=== PATIENT | female | born 1955 | race Caucasian/White ===

== ENCOUNTER 2018-11-07 15:55 | Inpatient (IN) | payer OTHER ==
[~2018-11-07] VITALS: Ht 162.6 cm; Wt 76.4 kg
[~2018-11-07 15:55] MED LIST: HYDROcodone/APAP 7.5/325 MG 1 TAB PO SCH
--- NOTE | 2018-11-07 15:55 | NUR ---
Patient BIBA BLS, transferred to bed 5. RN evaluating patient at bedside.
[2018-11-07 16:00] VITALS: BP 195/71
--- NOTE | 2018-11-07 16:16 | NUR ---
Patient transferred to bed 7 for further care. RN re-evaluating patient at bedside.
[2018-11-07] MEDS ORDERED: hydrALAZINE 20 MG/ML VIAL IVP ONE (16:20)
--- NOTE | 2018-11-07 16:27 | NUR ---
Dr. Baker evaluating patient at bedside.
--- NOTE | 2018-11-07 16:30 | NUR ---
RLQ ABD PAIN SINCE THIS MORNING 0700, PT WENT TO DIALYSIS , ABOUT 30 MINUTES AWAY TO FINISH DIALYSIS. ABD PAIN GETTING WORSE. DIALYSIS CENTER STAFF CALLED 911. DENIES N/V/D; PT DENIES ANY FEVER, CP, SOB, OR COUGH AT THIS TIME; PATIENT STATES PAIN OF 0/10 AT THIS TIME; VSS; PATIENT POSITIONED FOR COMFORT; HOB ELEVATED; BEDRAILS UP X1; BED DOWN. ER MD MADE AWARE OF PT STATUS.
--- NOTE | 2018-11-07 16:35 | NUR ---
Patient taken to CT scan via gurney by [employer].
[2018-11-07 16:54] LABS: BASOPHILS % (AUTO) 0.8 % (0.0-2.0); EOSINOPHILS # (AUTO) 0.2 K/uL (0-0.4); EOSINOPHILS % (AUTO) 3.2 % (0.0-4.0); HEMATOCRIT 31.2 % (36-48); HEMOGLOBIN 10.2 g/dL (12.0-16.0); LYMPHOCYTES # (AUTO) 0.9 K/uL (2.5-16.5); LYMPHOCYTES % (AUTO) 17.9 % (20.5-51.1); MEAN CORPUSCULAR HEMOGLOBIN 31 pg (27-31); MEAN CORPUSCULAR HGB CONC 33 g/dL (33-37); MEAN CORPUSCULAR VOLUME 96.1 fL (80-94); MONOCYTES # (AUTO) 0.3 K/uL (0.8-1.0); MONOCYTES % (AUTO) 5.5 % (1.7-9.3); NEUTROPHILS # (AUTO) 3.5 K/uL (1.8-7.7); NEUTROPHILS % (AUTO) 72.6 % (42.2-75.2); PLATELET COUNT (AUTO) 188 K/uL (140-450); RED BLOOD CELL COUNT(AUTO) 3.24 MIL/uL (4.20-5.40); WHITE BLOOD COUNT (AUTO) 4.9 K/uL (4.8-10.8)
--- NOTE | 2018-11-07 17:02 | NUR ---
EKG PERFORMED AT BEDSIDE
[2018-11-07 17:16] LABS: ANION GAP 11.6 (8-16); POTASSIUM 3.6 mmol/L (3.5-5.1)
[2018-11-07 17:20] LABS: ALBUMIN 3.7 g/dL (3.4-5.0); TOTAL BILIRUBIN 0.8 mg/dL (0.0-1.0)
[2018-11-07 17:21] LABS: CREATININE 4.4 mg/dL (0.6-1.3)
[2018-11-07 17:23] LABS: PROTHROMBIN TIME 10.6 secs (10.8-13.4)
[2018-11-07] MEDS ORDERED: NACL 0.9% 1,000 ML IV SCH (17:50)
[2018-11-07] MEDS ORDERED: MORPHINE SULFATE 2 MG/ML SYR IVP ONE (18:25)
--- NOTE | 2018-11-07 18:51 | NUR ---
Pt transferred to [id number] via BED WITH HANY ROSAS.
--- NOTE | 2018-11-07 19:00 | NUR ---
Patient will be admitted to care of [facility]. Admited to TELEMETRY. Will go to room 117. Belongings list completed. Report to HANY FANG.
--- NOTE | 2018-11-07 19:05 | NUR ---
RECEIVED REPORT FROM EMERGENCY ROOM NURSE FOR CONTINUITY OF CARE. PT IN STABLE CONDITION. RESPIRATIONS EVEN AND UNLABORED. IV INTACT AND PATENT. SAFETY MEASURES IN PLACE. BED IN LOW POSITION. BED ALARM ON. CALL LIGHT AT BEDSIDE. WILL CONTINUE TO MONITOR.
[2018-11-07 19:12] LABS: CHOL/HDL RATIO 2.6 (1-4.5); MAGNESIUM 2.2 mg/dL (1.8-2.4); PHOSPHORUS 3.6 mg/dL (2.5-4.9); THYROID STIMULATING HORMONE 1.62 uIU/mL (0.34-3.74)
[2018-11-07 19:15] VITALS: BP 159/75
--- NOTE | 2018-11-07 19:15 | NUR ---
GAVE REPORT TO INTERVENTION MANAGER NURSE TIGRE FOR CONTINUITY OF CARE. PT IN STABLE CONDITION.
--- NOTE | 2018-11-07 19:15 | NUR ---
RECIEVED PT AAOX4 ,NID , IV SITE INTACT AND PATENT , WITV FISTULA ON LEFT UPPER ARM , WITH BEARABLE PAIN AT THIS TIME , RESIDENT ON BEDSIDE , PLAN OF CARE DISCUSSED AND VERBALIZE UNDERSTANDING , BED IN LOW POSITION ,SIDERAILS UP ,CALL LIGHT WITHIN REACH , WILL CONT. TO MONITOR.
[2018-11-07] MEDS ORDERED: MELATONIN 3 MG TAB PO PRN (19:45)
[2018-11-07] MEDS ORDERED: MEDICATION REC. PHARMACY CONS. 1 EA MISC MC PRN (19:45)
[2018-11-07] MEDS ORDERED: TRA200 PO (20:04)
[2018-11-07] MEDS ORDERED: SEVE0.8P PO (20:04)
[2018-11-07] MEDS ORDERED: LISI-420 PO (20:04)
[2018-11-07] MEDS ORDERED: METO10TA10 PO (20:04)
[2018-11-07] MEDS ORDERED: VITA1TAB44 PO (20:04)
[2018-11-07] MEDS ORDERED: ISOS30TE68 PO (20:04)
[2018-11-07] MEDS ORDERED: ATOR40TA PO (20:04)
[2018-11-07] MEDS ORDERED: SEVELAMER CARBONATE 800 MG TAB PO SCH (20:05)
[2018-11-07] MEDS ORDERED: METOCLOPRAMIDE 10 MG/2 ML INJ VIAL IVP PRN (20:05)
[2018-11-07] MEDS ORDERED: LIDOCAINE VISCOUS 2% 20 ML UDC PO ONE (20:20)
[2018-11-07] MEDS ORDERED: DICYCLOMINE HCL LIQUID 10 MG/5 ML UDC PO ONE (20:20)
[2018-11-07] MEDS ORDERED: ALUMINUM HYD/MAG/SIMETHICONE 30 ML UDC PO ONE (20:20)
[2018-11-07] MEDS ORDERED: SODIUM PHOSPHATE 118 ML ENEM RC PRN (20:30)
[2018-11-07] MEDS ORDERED: DICYCLOMINE HCL LIQUID 10 MG/5 ML UDC PO PRN (20:30)
--- NOTE | 2018-11-07 22:00 | NUR ---
BEDSIDE TELEPHONE NOT WORKING - INFROM FAIR[facility] ABOUT THIS - FIXED
[2018-11-07] MEDS ORDERED: HYDROmorphone 1 MG/ML AMP IVP PRN (22:45)
[2018-11-07] MEDS ORDERED: HYDROcodone/APAP 7.5/325 MG 1 TAB ONE (23:08)
--- NOTE | 2018-11-07 23:10 | NUR ---
NARCO TAB FOR PAIN GIVEN NO ENTRY TO EMAR BECAUSE THE EMAR NOT YET UPLOADED / UPDATED BY PHARMACY - CHARGE NURSE OK AWARE SHE IS THE ONE OVERRIDED THE NARCO
--- NOTE | 2018-11-07 23:30 | NUR ---
NA PHOSPHATE FLEET ENEMA GIVEN / RECTUM ORDERED.
[2018-11-08] VITALS: BP_SYST 148; BP_SYST 152; BP_DIAS 72; BP_DIAS 85
--- NOTE | 2018-11-08 | NUR ---
MADE ROUNDS , RESP. EVEN AND UNLABORED , NO COMPLAIN MADE AT THIS TIME , CALL LIGHT WITHIN REACH.
--- NOTE | 2018-11-08 | NUR ---
MADE ROUNDS ,RESP.EVEN AND UNLABORED , NO COMPLAIN MADE AT THIS TIME , CALL LIGHT WITHIN REACH , WILL CONT. TO MONITOR.
[2018-11-08] MEDS: ISOSORBIDE MONONITRATE 30 MG TABER PO SCH ×2 (00:33→09:06)
[2018-11-08] MEDS: LABETALOL 200 MG TAB PO SCH ×3 (00:34→21:47)
[2018-11-08] MEDS ORDERED: HYDROcodone/APAP 7.5/325 MG 1 TAB PO PRN (01:15)
[2018-11-08] MEDS ORDERED: ALUMINUM HYD/MAG/SIMETHICONE 30 ML UDC ONE (01:18)
[2018-11-08] MEDS ORDERED: LIDOCAINE VISCOUS 2% 20 ML UDC ONE (01:18)
[2018-11-08] MEDS: DEXT 5% / NACL 0.9% 500 ML IV SCH ×2 (01:30→03:42)
[2018-11-08] MEDS ORDERED: GLUCAGON 1 MG VIAL IVP PRN (01:35)
[2018-11-08] MEDS ORDERED: DEXTROSE 50% 50 ML SYR IVP PRN (01:35)
[2018-11-08] MEDS ORDERED: INSULIN LISPRO SLIDING SCALE 100 UNITS/ML VIAL SUBQ PRN (01:35)
--- NOTE | 2018-11-08 02:00 | NUR ---
PT SLEEPING , CALL LIGHT WITHIN REACH
[2018-11-08 04:00] VITALS: BP 142/75
--- NOTE | 2018-11-08 04:00 | NUR ---
MADE ROUNDS RESP. EVEN AND UNLABORED , NO COMPLAIN MADE AT THIS TIME , CALL LIGHT WITHIN REACH
[2018-11-08] MEDS: BLOOD GLUCOSE MONITORING 1 DEV DEV FS SCH ×4 (06:09→21:00)
--- NOTE | 2018-11-08 07:23 | NUR ---
ENDORSED TO AM SHIFT TO CONT. OF CARE , LATEST BP 142/72
--- NOTE | 2018-11-08 07:26 | NUR ---
RECEIVED REPORT FROM MACHINIST/MACHINE BUILDER NURSE FOR CONTINUITY OF CARE. PT IN STABLE CONDITION. RESPIRATIONS EVEN AND UNLABORED. IV INTACT AND PATENT. SKIN INTACT. NPO EXCEPT MEDS. SAFETY MEASURES IN PLACE. BED IN LOW POSITION. BED ALARM ON. CALL LIGHT AT BEDSIDE. WILL ROUND FREQUENTLY ON PT.
[2018-11-08] MEDS ORDERED: SUCRALFATE 1 GM TAB PO SCH (08:00)
--- NOTE | 2018-11-08 08:08 | NUR ---
PATIENT HAS BEEN SCREENED AND CATEGORIZED MODERATE NUTRITION RISK. PATIENT WILL BE SEEN WITHIN 3-5 DAYS OF ADMISSION. 11/10/18[address]
[2018-11-08 08:20] VITALS: BP 140/52
[2018-11-08 08:32] LABS: EOSINOPHILS # (AUTO) 0.2 K/uL (0-0.4); EOSINOPHILS % (AUTO) 4.6 % (0.0-4.0); HEMATOCRIT 29.5 % (36-48); HEMOGLOBIN 9.6 g/dL (12.0-16.0); LYMPHOCYTES # (AUTO) 1.3 K/uL (2.5-16.5); LYMPHOCYTES % (AUTO) 28.6 % (20.5-51.1); MEAN CORPUSCULAR HEMOGLOBIN 31 pg (27-31); MEAN CORPUSCULAR HGB CONC 33 g/dL (33-37); MONOCYTES # (AUTO) 0.4 K/uL (0.8-1.0); NEUTROPHILS # (AUTO) 2.7 K/uL (1.8-7.7); NEUTROPHILS % (AUTO) 57.8 % (42.2-75.2); PLATELET COUNT (AUTO) 184 K/uL (140-450); RED BLOOD CELL COUNT(AUTO) 3.07 MIL/uL (4.20-5.40); RED CELL DISTRIBUTION WIDTH 16.2 % (11.6-13.7); WHITE BLOOD COUNT (AUTO) 4.6 K/uL (4.8-10.8)
[2018-11-08 08:38] LABS: ANION GAP 12.4 (8-16); CARBON DIOXIDE 31.8 mmol/L (21-32); POTASSIUM 4.2 mmol/L (3.5-5.1)
[2018-11-08 08:41] LABS: MAGNESIUM 2.2 mg/dL (1.8-2.4); PHOSPHORUS 5.9 mg/dL (2.5-4.9)
--- NOTE | 2018-11-08 08:49 | NUR ---
ADMINISTERED MORNING MEDS TO PT. PT TOLERATED THEM WELL. WILL CONTINUE TO ROUND FREQUENTLY ON PT.
[2018-11-08] MEDS: SEVELAMER CARBONATE 800 MG TAB PO SCH (09:07)
[2018-11-08] MEDS: GABAPENTIN 300 MG CAP PO SCH ×2 (09:08→21:47)
[2018-11-08] MEDS: VIT-B COMP/VIT-C/FOLIC ACID 1 TAB PO SCH (09:08)
--- NOTE | 2018-11-08 12:24 | NUR ---
PT REFUSING INSULIN COVERAGE DUE TO BEING NPO. WILL RECHECK PT GLUCOSE LEVEL AT 1630.
--- NOTE | 2018-11-08 13:18 | NUR ---
RECORDING ENGINEER note [id number]. Bedside swallow evaluation completed, please see report for details. RECORDING ENGINEER provided pt with education regarding purpose of RECORDING ENGINEER's visit and rationale for recommendations. Pt verbalized agreement and understanding at this time. No family present at this time. Recommend: 1) mechanical soft textures (per pt's preference) 2) thin liquids 3) pills to be crushed, if possible (per pt's preference) 4) general aspiration precautions (including pt to be fully upright/awake/alert for any PO intakes, alternate small/slow bites and sips) 5) no further RECORDING ENGINEER intervention indicated at this time. Physician may reorder if further concerns arise, as appropriate. G-codes: [id number] [id number] [facility] NOMS level 5.
--- NOTE | 2018-11-08 13:39 | NUR ---
PT RESTING IN BED. NO COMPLAINTS OF PAIN AT THIS TIME. WILL CONTINUE TO ROUND FREQUENTLY ON PT.
[2018-11-08] MEDS ORDERED: BOWEL EVACUANT DRINK 4,000 ML PDS PO SCH (15:00)
--- NOTE | 2018-11-08 15:38 | NUR ---
PT RESTING IN BED. NO COMPLAINTS OF PAIN AT THIS TIME. WILL CONTINUE TO ROUND FREQUENTLY ON PT.
[2018-11-08 16:00] VITALS: BP 150/54
[2018-11-08] MEDS: LACTULOSE 20 GM/30 ML UDC PO SCH ×2 (17:45→21:47)
[2018-11-08] MEDS: SENNA 8.6 MG TAB PO SCH (17:46)
--- NOTE | 2018-11-08 19:37 | NUR ---
RECIEVED PT AAOX4 , NID , IV SITE INTACT AND PATENT , PLAN OF CARE DISCUSSED AND VERBALIZE UNDERSTANDING , NO COMPLAIN MADE AT THIS TIME . BED IN LOW POSITION , CALL LIGHT WITHIN REACH , SIDERAILS UPX2 , WILL CONTINUE TO MONITOR . FOR COLONOSCOPY K[place]. ON NPO POST [place] RE INSTRUCTED.
--- NOTE | 2018-11-08 19:37 | NUR ---
ENDORSED PT TO MANAGER MERCHANDISING FOR CONTINUITY OF CARE. PT IN STABLE CONDITION AT THIS TIME.
[2018-11-08 20:00] VITALS: BP 154/64
--- NOTE | 2018-11-08 22:00 | NUR ---
MADE ROUNDS - PT. SLEEPING. CALL LIGHT WITHIN REACH.
--- NOTE | 2018-11-09 | NUR ---
MADE ROUNDS , V/S WNL , NO COMPLAIN MADE AT THIS TIME , WILL CONT. TO MONITOR ,CALL LIGHT WITHIN REACH.
--- NOTE | 2018-11-09 02:00 | NUR ---
MADE ROUNDS , PT. SLEEPING , WILL CONT. TO MONITOR;
[2018-11-09 04:00] VITALS: BP 120/80
--- NOTE | 2018-11-09 04:00 | NUR ---
MADE ROUNDS , RESP EVEN AND UNLABORED , NO COMPLAIN MADE AT THIS TIME , CALL LIGHT WITHIN REACH.
--- NOTE | 2018-11-09 06:00 | NUR ---
MADE ROUNDS , NO COMPLAIN MADE AT THIS TIME. CALL LIGHT WITHIN REACH.
--- NOTE | 2018-11-09 07:22 | NUR ---
ENDORSED TO AM SHIFT FOR CONTINUITY OF CARE ,WITH STABLE CONDITION. CALL LIGHT WITHIN REACH.
--- NOTE | 2018-11-09 07:29 | NUR ---
RECEIVED REPORT FROM DISTRICT FIRE CHIEF FOR CONTINUITY OF CARE FROM YESTERDAY. PT IS ALERT AND ORIENTED. WILL ROUND FREQUENTLY ON PT.
[2018-11-09] MEDS: BLOOD GLUCOSE MONITORING 1 DEV DEV FS SCH ×4 (07:59→21:00)
[2018-11-09 08:30] VITALS: BP 184/68
[2018-11-09 08:33] LABS: BASOPHILS % (AUTO) 0.7 % (0.0-2.0); EOSINOPHILS # (AUTO) 0.3 K/uL (0-0.4); EOSINOPHILS % (AUTO) 5.5 % (0.0-4.0); HEMATOCRIT 29.9 % (36-48); HEMOGLOBIN 9.8 g/dL (12.0-16.0); LYMPHOCYTES # (AUTO) 1.4 K/uL (2.5-16.5); LYMPHOCYTES % (AUTO) 28.5 % (20.5-51.1); MEAN CORPUSCULAR HEMOGLOBIN 31 pg (27-31); MEAN CORPUSCULAR HGB CONC 33 g/dL (33-37); MEAN CORPUSCULAR VOLUME 96.4 fL (80-94); MONOCYTES # (AUTO) 0.4 K/uL (0.8-1.0); MONOCYTES % (AUTO) 8.3 % (1.7-9.3); NEUTROPHILS # (AUTO) 2.8 K/uL (1.8-7.7); PLATELET COUNT (AUTO) 181 K/uL (140-450); WHITE BLOOD COUNT (AUTO) 4.9 K/uL (4.8-10.8)
[2018-11-09] MEDS ORDERED: fentaNYL 0.05 MG/ML VIAL ONE (08:33)
[2018-11-09] MEDS ORDERED: diphenhydrAMINE 50 MG/ML VIAL ONE (08:33)
[2018-11-09] MEDS ORDERED: MIDAZOLAM 2 MG/2 ML VIAL ONE (08:33)
[2018-11-09] MEDS ORDERED: fentaNYL 0.05 MG/ML VIAL IVP ONE (09:05)
[2018-11-09] MEDS ORDERED: MIDAZOLAM 2 MG/2 ML VIAL IVP ONE (09:05)
--- NOTE | 2018-11-09 09:12 | NUR ---
ADMINISTERED MORNING MEDS TO PT. PT TOLERATED THEM WELL. WILL CONTINUE TO ROUND FREQUENTLY ON PT.
[2018-11-09 09:40] LABS: ANION GAP 14.3 (8-16); CARBON DIOXIDE 30.3 mmol/L (21-32); POTASSIUM 4.6 mmol/L (3.5-5.1)
[2018-11-09 09:45] LABS: MAGNESIUM 2.7 mg/dL (1.8-2.4)
[2018-11-09 09:48] LABS: CREATININE 7.8 mg/dL (0.6-1.3)
[2018-11-09] MEDS ORDERED: ACETAMINOPHEN 325 MG TAB ONE (10:49)
[2018-11-09] MEDS: VIT-B COMP/VIT-C/FOLIC ACID 1 TAB PO SCH (10:57)
[2018-11-09] MEDS: ECOTRIN 81 MG TABEC PO SCH (10:58)
[2018-11-09] MEDS: ISOSORBIDE MONONITRATE 30 MG TABER PO SCH (10:58)
[2018-11-09] MEDS: SENNA 8.6 MG TAB PO SCH ×3 (10:58→17:00)
[2018-11-09] MEDS: LABETALOL 200 MG TAB PO SCH ×2 (10:59→20:57)
[2018-11-09] MEDS: LACTULOSE 20 GM/30 ML UDC PO SCH ×4 (11:00→21:00)
--- NOTE | 2018-11-09 11:47 | NUR ---
PT RESTING IN BED. NO COMPLAINTS OF PAIN AT THIS TIME. WILL CONTINUE TO ROUND FREQUENTLY ON PT.
--- NOTE | 2018-11-09 13:29 | NUR ---
PT RESTING IN BED. NO COMPLAINTS OF PAIN AT THIS TIME. WILL CONTINUE TO ROUND FREQUENTLY ON PT.
[2018-11-09 15:10] LABS: FOLIC ACID > 20.00 ng/mL (>3.0)
[2018-11-09 16:00] VITALS: BP 150/54
[2018-11-09] MEDS ORDERED: EPOETIN ALFA 10,000 UNITS/ML VIAL IV SCH (17:00)
--- NOTE | 2018-11-09 17:55 | NUR ---
PT RESTING IN BED. NO COMPLAINTS OF PAIN AT THIS TIME. WILL CONTINUE TO ROUND FREQUENTLY ON PT.
[2018-11-09] MEDS: ACETAMINOPHEN 325 MG TAB PO PRN (18:35)
[2018-11-09] MEDS: LANSOPRAZOLE 30 MG CAPDR PO SCH (18:35)
[2018-11-09] MEDS ORDERED: MAGNESIUM CITRATE 300 ML BTL PO SCH (19:00)
--- NOTE | 2018-11-09 19:30 | NUR ---
RECEIVED REPORT FORM DAY SHIFT NURSE. AAOX4. MIRIAN PAIN AT THIS TIME. NO SOB NOTED. ON ROOM AIR. IV TO RIGHT FA #20G AND RIGHT HAND #20G, PATENT AND INTACT. PT HAS LEFT AV SHUNT WITH DRESSING, CLEAN, DRY AND INTACT. PT'S DAUGHTER AT BEDSIDE. SAFETY PRECAUTION IN PLACE. CALL LIGHT WITHIN REACH.
--- NOTE | 2018-11-09 19:56 | NUR ---
ENDORSED PT TO PHARMACIST IN CHARGE OWNER FOR CONTINUITY OF CARE. PT IN STABLE CONDITION AT THIS TIME.
[2018-11-09 20:00] VITALS: BP 148/57
[2018-11-09] MEDS: CLARITHROMYCIN 500 MG TAB PO SCH (20:57)
[2018-11-09] MEDS: AMOXICILLIN 500 MG CAP PO SCH (20:57)
[2018-11-09] MEDS: POLYETHYLENE GLYCOL 17 GM/PKT PO SCH (21:00)
--- NOTE | 2018-11-09 21:12 | NUR ---
PT REFUSED LACTULOSE, MIRALAX AND HEPARIN 5000 UNITS SUBQ. EXPLAINED TO PT THE RISK AND BENEFITS. PT VERBALIZED UNDERSTANDING BUT STILL REFUSED. DR. ALBARADO MADE AWARE.
--- NOTE | 2018-11-09 21:30 | NUR ---
ASSISTED PT TO BEDSIDE COMMODE AND BACK TO BED. PT HAD MEDIUM SIZE FORMED BM. NO C/O PAIN AT THIS TIME.
[2018-11-09] MEDS ORDERED: MORPHINE SULFATE 2 MG/ML SYR IVP SCH (22:15)
--- NOTE | 2018-11-09 22:30 | NUR ---
MORPHINE HELD AT THIS TIME. DR. ALBARADO MADE AWARE THAT PT SLEEPING. NO S/S OF PAIN. PER MD, JUST GIVE THE MORPHINE WHEN PT ASKED FOR PAIN MEDS.
[2018-11-10 00:30] VITALS: BP 200/68
[2018-11-10] MEDS: hydrALAZINE 20 MG/ML VIAL IVP PRN ×2 (01:01→16:18)
--- NOTE | 2018-11-10 01:05 | NUR ---
PT'S BP 200/68, HR 79. HYDRALAZINE 10 MG IVP GIVEN. PT C/O ABD. PAIN. MORPHINE [address] ALBARADO MADE AWARE. PT REFUSED TO TAKE THE BOWEL PREP FOR COLONOSCOPY. DR. ALBARADO MADE AWARE BUT ORDERED TO KEEP THE PT NPO AFTER MIDNIGHT.
[2018-11-10 02:01] VITALS: BP 146/61
--- NOTE | 2018-11-10 02:05 | NUR ---
RECHECKED V/S BP 146/61, HR 89. DENIES PAIN AT THIS TIME. PT KEPT COMFORTABLE. CALL LIGHT WITHIN REACH.
[2018-11-10 04:00] VITALS: BP 133/56
--- NOTE | 2018-11-10 04:50 | NUR ---
PT SLEEPING. NO S/S OF RESP DISTRESS. NO S/S OF PAIN. SAFETY PRECAUTION IN PLACE. CALL LIGHT WITHIN REACH.
--- NOTE | 2018-11-10 06:00 | NUR ---
BLOOD SUGAR CHECKED 87. PT LYING IN BED. AWAKE. NO C/O PAIN OR SOB. ALL NEEDS ATTENDED AT THIS TIME.
[2018-11-10] MEDS: BLOOD GLUCOSE MONITORING 1 DEV DEV FS SCH ×4 (06:17→21:32)
[2018-11-10] MEDS: LANSOPRAZOLE 30 MG CAPDR PO SCH ×2 (06:39→16:16)
--- NOTE | 2018-11-10 07:05 | NUR ---
ENDORSED PT TO DAY SHIFT NURSE. PT IN STABLE CONDITION.
--- NOTE | 2018-11-10 07:06 | NUR ---
RECEIVED ENDORSEMENT FROM DOCUMENTATION DESIGNER NURSE. PATIENT IS AAOX4, NORWEGIAN SPEAKING. RESPIRATIONS ARE EVEN AND UNLABORED ON ROOM AIR. PATIENT DENIES ANY PAIN AT THIS TIME. LEFT ARM AV SHUNT NOTED. RIGHT FA 20G IV INTACT AND SL. RIGHT HAND 20IV INTACT AND SL. PLAN OF CARE OF WAS REVIEWED WITH PATIENT, PATIENT VERBALIZED UNDERSTANDING. SAFETY MEASURES IN PLACE, CALL LIGHT WITHIN REACH.
[2018-11-10 08:00] VITALS: BP 184/65
[2018-11-10] MEDS: ACETAMINOPHEN 325 MG TAB PO PRN ×2 (08:47→17:26)
[2018-11-10] MEDS: CLARITHROMYCIN 500 MG TAB PO SCH (08:50)
[2018-11-10] MEDS: VIT-B COMP/VIT-C/FOLIC ACID 1 TAB PO SCH (08:50)
[2018-11-10] MEDS: AMOXICILLIN 500 MG CAP PO SCH (08:50)
[2018-11-10] MEDS: ISOSORBIDE MONONITRATE 30 MG TABER PO SCH (08:51)
[2018-11-10] MEDS: ECOTRIN 81 MG TABEC PO SCH (08:52)
[2018-11-10] MEDS: SENNA 8.6 MG TAB PO SCH ×3 (08:52→17:26)
[2018-11-10] MEDS: LABETALOL 200 MG TAB PO SCH ×2 (08:52→21:34)
[2018-11-10] MEDS: LACTULOSE 20 GM/30 ML UDC PO SCH ×4 (08:54→21:00)
[2018-11-10] MEDS: POLYETHYLENE GLYCOL 17 GM/PKT PO SCH ×2 (08:54→21:00)
--- NOTE | 2018-11-10 08:57 | NUR ---
ADMINISTERED SCHEDULED MEDICATIONS. PATIENT TOLERATED WELL. NO OTHER NEEDS AT THIS TIME, WILL CONTINUE TO MONITOR.
[2018-11-10] MEDS ORDERED: ONDANSETRON 4 MG/2 ML VIAL IVP PRN (09:50)
--- NOTE | 2018-11-10 10:15 | NUR ---
PATIENT SLEEPING. NO OTHER NEEDS AT THIS TIME, WILL CONTINUE TO MONITOR. Addendum: 11/10/18 at 1518 by Jerilyn Garcia RN VISIBLE RISE AND FALL OF CHEST.
[2018-11-10] MEDS: MORPHINE SULFATE 2 MG/ML SYR IVP PRN ×2 (10:52→21:34)
--- NOTE | 2018-11-10 12:15 | NUR ---
PATIENT SLEEPING, EASILY AROUSABLE. NO OTHER NEEDS AT THIS TIME, WILL CONTINUE TO MONITOR.
--- NOTE | 2018-11-10 13:13 | NUR ---
ADMINISTERED SCHEDULED MEDICATIONS. PATIENT TOLERATED WELL. NO OTHER NEEDS AT THIS TIME, WILL CONTINUE TO MONITOR.
[2018-11-10 14:36] LABS: BASOPHILS # (AUTO) 0.1 K/uL (0.00-0.22); EOSINOPHILS # (AUTO) 0.1 K/uL (0-0.4); HEMATOCRIT 32.3 % (36-48); HEMOGLOBIN 10.6 g/dL (12.0-16.0); LYMPHOCYTES # (AUTO) 1.2 K/uL (2.5-16.5); LYMPHOCYTES % (AUTO) 20.6 % (20.5-51.1); MEAN CORPUSCULAR HEMOGLOBIN 32 pg (27-31); MEAN CORPUSCULAR HGB CONC 33 g/dL (33-37); MEAN CORPUSCULAR VOLUME 96.3 fL (80-94); MONOCYTES # (AUTO) 0.3 K/uL (0.8-1.0); NEUTROPHILS % (AUTO) 70.4 % (42.2-75.2); PLATELET COUNT (AUTO) 207 K/uL (140-450); RED BLOOD CELL COUNT(AUTO) 3.35 MIL/uL (4.20-5.40); RED CELL DISTRIBUTION WIDTH 15.9 % (11.6-13.7); WHITE BLOOD COUNT (AUTO) 5.7 K/uL (4.8-10.8)
[2018-11-10 14:53] LABS: ANION GAP 14.7 (8-16); CARBON DIOXIDE 30.2 mmol/L (21-32); POTASSIUM 4.9 mmol/L (3.5-5.1)
[2018-11-10 14:55] LABS: CREATININE 6.5 mg/dL (0.6-1.3)
[2018-11-10 14:57] LABS: MAGNESIUM 2.6 mg/dL (1.8-2.4); PHOSPHORUS 5.4 mg/dL (2.5-4.9)
--- NOTE | 2018-11-10 15:18 | NUR ---
PATIENT SLEEPING. VISIBLE RISE AND FALL OF CHEST. NO OTHER NEEDS AT THIS TIME, WILL CONTINUE TO MONITOR.
[2018-11-10 16:00] VITALS: BP 183/67
[2018-11-10] MEDS: PANTOPRAZOLE 40 MG TABEC PO SCH (16:45)
[2018-11-10] MEDS: TETRACYCLINE 250 MG PO SCH ×2 (16:45→21:00)
[2018-11-10] MEDS: BISMUTH SUBSALICYLATE 15 ML UDBTL PO SCH ×2 (16:45→21:00)
--- NOTE | 2018-11-10 17:10 | NUR ---
SHEELA AT BEDSIDE. WITH PATIENTS PERMISSION, ADDRESSED ALL QUESTIONS AND CONCERNS. NO OTHER NEEDS AT THIS TIME, WILL CONTINUE TO MONITOR.
[2018-11-10] MEDS: metroNIDAZOLE 500 MG TAB PO SCH ×2 (18:00→21:33)
--- NOTE | 2018-11-10 19:27 | NUR ---
ENDORSED TO TAPPER HAND NURSE FOR CONTINUITY OF CARE. PATIENT IS STABLE AT THIS TIME.
--- NOTE | 2018-11-10 21:48 | NUR ---
ADMINISTERED SCHEDULED MEDICATIONS ORDERED. PT TOLERATED WELL. HELD PEPTO BISMOL AND TETRACYCLINE BECAUSE MEDICATIONS ARE NOT AVAILABLE IN [facility] OR [facility] AND [facility] SAID MEDICATIONS WERE NOT AVAILABLE AT THIS TIME. ALSO HELD LACTULOSE AND MIRALAX BECAUSE PT STATES SHE DIDN'T WANT THEM DUE TO HER HAVING DIARRHEA EARLIER IN THE DAY. ADMINISTERED MORPHINE FOR HEADACHE 12/10 AND ZOFRAN FOR NAUSEA WELL. LEFT BED IN LOWEST POSITION WITH BED ALARM ON AND CALL LIGHT WITHIN REACH. WILL CONTINUE TO MONITOR.
--- NOTE | 2018-11-10 23:45 | NUR ---
SPOKE TO PATIENT REGARDING COLONOSCOPY PROCEDURE AND HOW SHE HAD TO HAVE CLEAR STOOL AND THAT WAS WHAT THE MIRALAX AND LACTULOSE WAS FOR, BUT PT KEPT INSISTING THAT DAY SHIFT RN SAID SHE DIDN'T HAVE TO TAKE THEM ANYMORE BECAUSE HER STOOL WAS ALREADY CLEAR.
[2018-11-11] VITALS: BP 141/53
--- NOTE | 2018-11-11 | NUR ---
VITAL SIGNS ARE STABLE. DENIES HAVING PAIN. BED IN LOWEST POSITION, CALL LIGHT WITHIN REACH. WILL CONTINUE TO MONITOR.
[2018-11-11] MEDS: ACETAMINOPHEN 325 MG TAB PO PRN ×2 (01:50→17:18)
--- NOTE | 2018-11-11 01:50 | NUR ---
ADMINISTERED TYLENOL ORDERED FOR HEADACHE. PT TOLERATED WELL. BED IN LOWEST POSITION, CALL LIGHT WITHIN REACH. WILL CONTINUE TO MONITOR.
--- NOTE | 2018-11-11 04:00 | NUR ---
PT RESTING IN BED. DENIES HAVING PAIN. BED IN LOWEST POSITION, CALL LIGHT WITHIN REACH. WILL CONTINUE TO MONITOR.
--- NOTE | 2018-11-11 06:17 | NUR ---
ENDORSED CARE OF PT TO HANY JOSHI AT THIS TIME. PT IN STABLE CONDITION.
[2018-11-11] MEDS: BLOOD GLUCOSE MONITORING 1 DEV DEV FS SCH ×3 (06:20→17:07)
--- NOTE | 2018-11-11 06:20 | NUR ---
RECEIVED ENDORSEMENT OF CARE FORM DAINA RN AT BEDSIDE FOR CONTINUITY OF CARE, PT IN STABLE CONDITION.
[2018-11-11] MEDS: LANSOPRAZOLE 30 MG CAPDR PO SCH (06:26)
--- NOTE | 2018-11-11 06:46 | NUR ---
PT FINGERSTICK IS 82, BLOOD DRAWS AT BEDSIDE. PT ALSO GIVEN ORDERED PREVACID.
--- NOTE | 2018-11-11 06:50 | NUR ---
PLAN OF CARE TO BE ENDORSED AT BEDSIDE FOR CONTINUITY OF CARE, PT IN STABLE CONDITION.
--- NOTE | 2018-11-11 07:10 | NUR ---
RECEIVED PT FROM POWERED BRIDGE SPECIALIST NURSE, PT IS AWAKE AND LYING ON THE BED WITH SIDE RAILS UP AND CALL LIGHT WITHIN REACH, SAFETY AND FALL PRECAUTION ENFORCED, IV LINE ON THE RT FA G. 24 AND RT HAND G. 20 ON SALINE LOCK, PT HAS A LEFT AV SHUNT FOR DIALYSIS ACCESS, PT VERBALIZED A PAIN RATE OF 7/10. WILL MEDICATE AND MONITOR PT.
[2018-11-11 08:00] VITALS: BP 175/68
[2018-11-11] MEDS: POLYETHYLENE GLYCOL 17 GM/PKT PO SCH (08:51)
[2018-11-11] MEDS: SENNA 8.6 MG TAB PO SCH ×3 (08:52→17:00)
[2018-11-11] MEDS: PANTOPRAZOLE 40 MG TABEC PO SCH (08:52)
[2018-11-11] MEDS: ECOTRIN 81 MG TABEC PO SCH (08:52)
[2018-11-11] MEDS: metroNIDAZOLE 500 MG TAB PO SCH (08:52)
[2018-11-11] MEDS: SEVELAMER CARBONATE 800 MG TAB PO SCH (08:53)
[2018-11-11] MEDS: VIT-B COMP/VIT-C/FOLIC ACID 1 TAB PO SCH (08:53)
[2018-11-11] MEDS: BISMUTH SUBSALICYLATE 15 ML UDBTL PO SCH (08:53)
[2018-11-11] MEDS: MORPHINE SULFATE 2 MG/ML SYR IVP PRN (08:54)
[2018-11-11] MEDS: LABETALOL 200 MG TAB PO SCH (08:54)
[2018-11-11] MEDS: ISOSORBIDE MONONITRATE 30 MG TABER PO SCH (08:54)
[2018-11-11] MEDS: LACTULOSE 20 GM/30 ML UDC PO SCH ×3 (08:55→16:58)
--- NOTE | 2018-11-11 08:55 | NUR ---
PT IS AWAKE AND V/S CHECKED, BP IS 175/68, PULSE IS 84, O2 SATURATION IS 96%, RESPIRATION IS 18/MIN, ORAL MEDICATIONS WERE GIVEN AND PT TOLERATED IT, PAIN MEDICATION WAS GIVEN VIA IV PUSH. WILL MONITOR PT.
[2018-11-11] MEDS: hydrALAZINE 20 MG/ML VIAL IVP PRN (10:42)
--- NOTE | 2018-11-11 10:42 | NUR ---
PT WAS GIVEN HYDRALAZINE IV PUSH NOW PER VERBAL ORDER FORM DR. CRAMER, FOR THE BP 184/66, PULSE IS 83, O2 SATURATION IS 94%. WILL RE-ASSESS AND MONITOR PT.
--- NOTE | 2018-11-11 13:54 | NUR ---
PT IS AWAKE AND LYING ON THE BED, ORAL MEDICATIONS WERE GIVEN AND PT TOLERATED IT. WILL MONITOR PT.
[2018-11-11] MEDS ORDERED: CLARITHROMYCIN 500 MG TAB PO SCH ×2 (14:00→18:00)
[2018-11-11] MEDS ORDERED: AMOXICILLIN 500 MG CAP PO SCH (14:00)
[2018-11-11 16:00] VITALS: BP 161/62
[2018-11-11] MEDS ORDERED: LISINOPRIL 20 MG TAB PO SCH (16:20)
[2018-11-11] MEDS ORDERED: ISOSORBIDE MONONITRATE 30 MG TABER PO SCH ×2 (16:20→21:00)
[2018-11-11] MEDS ORDERED: MELA3TAB PO (16:21)
[2018-11-11] MEDS ORDERED: PANT40EC28 PO (16:21)
[2018-11-11] MEDS ORDERED: AMOX500C25 PO (16:21)
[2018-11-11] MEDS ORDERED: ASPI-1173 PO (16:21)
[2018-11-11] MEDS ORDERED: METR250T2 PO (16:21)
[2018-11-11] MEDS ORDERED: CLAR500T PO (16:21)
[2018-11-11] MEDS ORDERED: TRA200 PO (16:21)
[2018-11-11 17:30] VITALS: BP 149/87
--- NOTE | 2018-11-11 17:30 | NUR ---
PT'S VITAL SIGN WAS CHECKED, BP IS 149/87, PULSE IS 89, TEMP IS 98.9, O2 SATURATION IS 96%.
--- NOTE | 2018-11-11 19:25 | NUR ---
ENDORSED PT TO INSIDE SALES REPRESENTATIVE NURSE FOR CONTINUITY OR CARE.
--- NOTE | 2018-11-11 19:26 | NUR ---
RECEIVED PT FROM DAY RN, PT IS AAOX4 AND LYING ON THE BED WITH SIDE RAILS UP AND CALL LIGHT WITHIN REACH, SAFETY AND FALL PRECAUTION ENFORCED, IV LINE ON THE RT FA G. 24 AND RT HAND G. 20 ON SALINE LOCK, PT HAS A LEFT AV SHUNT FOR DIALYSIS ACCESS, PT DENIES PAIN. ORDER PATY DISCHARGE. PAPER STILL TO BE SIGN AND WILL CALL TAXI. PLAN OF CARE DISCUSSED WITH PT. WILL CONTINUE TO ROUND FREQUENTLY.
--- NOTE | 2018-11-11 19:40 | NUR ---
WENT IN WITH DR HUNT TO EXPLAIN TO PATIENT D/C INSTRUCTIONS. PT VERBALIZED UNDERSTANDING AND NO FURTHER QUESTIONS VS ARE WNL ALL NEEDS MET AT THIS TIME. CALLED TAXI WILL BE HERE IN ABOUT 45 MINUTES. WILL CONTINUE TO MONITOR.
[2018-11-11 20:00] VITALS: BP 140/89
--- NOTE | 2018-11-11 20:15 | NUR ---
ALL DISCHARGE PAPERS WERE SIGNED. REMOVED BOTH IV IV CATH IS INTACT. PT IS IN STABLE CONDITION. ASSEMBLER CONVERTIBLE TOP WILL HELP PT CHANGE. WILL CONTINUE TO MONITOR.
[2018-11-11] MEDS ORDERED: LABETALOL 200 MG TAB PO SCH (21:00)
--- NOTE | 2018-11-11 21:10 | NUR ---
PATIENT WHEELED OUT BY [employer] HEATER TENDER ON OWN WHEELCHAIR IN STABLE CONDITION. ID BAND REMOVED. IV REMOVED. DISCHARGE PAPERS WITH PATIENT. TAXI VOUCHER GIVEN TO PRESS CATCHER .
[2018-11-12] MEDS ORDERED: EPOETIN ALFA 10,000 UNITS/ML VIAL IV SCH (09:00)
[2018-11-12] MEDS ORDERED: AMOXICILLIN 500 MG CAP PO SCH (09:00)
[2018-11-12] MEDS ORDERED: LISINOPRIL 20 MG TAB PO SCH (09:00)
[2018-11-12] MEDS ORDERED: CLARITHROMYCIN 500 MG TAB PO SCH (09:00)
== END 2018-11-11 21:10 | disposition home or self-care (01) | DRG 682 ==
LOC: MED 15:55 → MTU 17:54
PROVIDERS: ADMIT General Practice; ATTEND General Practice
PROC: 0DB68ZX Excision of Stomach, Via Natural or Artificial Opening Endoscopic, Diagnostic (ICD-10-PCS; principal; 2018-11-09 08:30)
PROC: 5A1D70Z Performance of Urinary Filtration, Intermittent, Less than 6 Hours Per Day (ICD-10-PCS; 2018-11-09 08:30)
DX: N17.0 Acute kidney failure with tubular necrosis (principal); E43 Unspecified severe protein-calorie malnutrition; K57.92 Diverticulitis of intestine, part unspecified, without perforation or abscess without bleeding; I16.1 Hypertensive emergency; I12.0 Hypertensive chronic kidney disease with stage 5 chronic kidney disease or end stage renal disease; K29.70 Gastritis, unspecified, without bleeding; N18.6 End stage renal disease; B96.81 Helicobacter pylori [H. pylori] as the cause of diseases classified elsewhere; K29.80 Duodenitis without bleeding; K76.9 Liver disease, unspecified; E11.22 Type 2 diabetes mellitus with diabetic chronic kidney disease; E66.9 Obesity, unspecified; E78.5 Hyperlipidemia, unspecified; E11.40 Type 2 diabetes mellitus with diabetic neuropathy, unspecified; E83.39 Other disorders of phosphorus metabolism; D63.8 Anemia in other chronic diseases classified elsewhere; D18.03 Hemangioma of intra-abdominal structures; E11.51 Type 2 diabetes mellitus with diabetic peripheral angiopathy without gangrene; E83.41 Hypermagnesemia; N28.1 Cyst of kidney, acquired; K59.00 Constipation, unspecified; Z99.2 Dependence on renal dialysis; Z68.28 Body mass index [BMI] 28.0-28.9, adult
CPT/HCPCS: 36415; 71045; 74018; 74170; 76705; 80048; 80053; 82140; 82150; 82306; 82607; 82746; 82948; 83036; 83605; 83690; 83735; 83880; 84100; 84439; 84443; 84484; 85025; 85610; 85730; 86677; 87040; 87081; 92610; 93005; 93925; 93970; 96374; 96375; 97110; 97116; 97161-GP; 97530; 99285; J0360; J0885; J1170; J1200; J1644; J1815; J2250; J2270; J2405; J3010; Q0092; Q9967